=== PATIENT | male | born 1990 | race Caucasian/White ===

== ENCOUNTER 2023-03-27 23:55 | Emergency (ER) | payer SELFPAY ==
[2023-03-27 23:56] VITALS: BP 140/73; PULSE 98; RESP 20; TEMP 36.6; O2SAT 99; BMI 30.2
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
[2023-03-28 00:08] VITALS: BP 140/73; PULSE 98; RESP 20; TEMP 36.6
== END 2023-03-28 00:14 ==
PROVIDERS: Emergency Provider Emergency Medicine
DX: F10.929 Alcohol use, unspecified with intoxication, unspecified (principal)
CPT/HCPCS: 99281